=== PATIENT | male | born 1945 | race Two or more races ===

== ENCOUNTER 2022-01-22 08:30 | Inpatient (IN) | payer OTHER ==
[~2022-01-22] VITALS: Ht 180.3 cm; Wt 63.5 kg
[2022-01-22] MEDS ORDERED: IRBESARTAN-HCT1 EAC1 (12:42)
[2022-01-22] MEDS ORDERED: CALAN SR 120MG120 MG (12:42)
[2022-01-22] MEDS ORDERED: DEXILANT60 MG (12:42)
[2022-02-01] MEDS ORDERED: MONTELUKAST SOD10 MG (08:14)
[2022-02-01] MEDS ORDERED: HYDROXYZINE PAM50 MG (08:14)
== END 2022-02-06 13:10 | disposition home or self-care (01) | DRG 330 ==
LOC: SURG 01-25 08:30 → O/R 02-01 05:16 → SURG 02-01 08:30
PROVIDERS: ADMIT Colon & Rectal Surgery; ATTEND Colon & Rectal Surgery
PROC: 0DBP4ZZ Excision of Rectum, Percutaneous Endoscopic Approach (ICD-10-PCS; 2022-02-01)
PROC: 0WQF4ZZ Repair Abdominal Wall, Percutaneous Endoscopic Approach (ICD-10-PCS; 2022-02-01)
PROC: 0DNW4ZZ Release Peritoneum, Percutaneous Endoscopic Approach (ICD-10-PCS; 2022-02-01)
PROC: 0DJD8ZZ Inspection of Lower Intestinal Tract, Via Natural or Artificial Opening Endoscopic (ICD-10-PCS; 2022-02-01)
PROC: 4A1BXSH Monitoring of Gastrointestinal Vascular Perfusion using Indocyanine Green Dye, External Approach (ICD-10-PCS; 2022-02-01)
PROC: 0DTN4ZZ Resection of Sigmoid Colon, Percutaneous Endoscopic Approach (ICD-10-PCS; principal; 2022-02-01 09:45)
DX: K57.20 Diverticulitis of large intestine with perforation and abscess without bleeding (principal); K56.690 Other partial intestinal obstruction; T18.4XXA Foreign body in colon, initial encounter; R10.32 Left lower quadrant pain; K43.9 Ventral hernia without obstruction or gangrene; D12.5 Benign neoplasm of sigmoid colon; I10 Essential (primary) hypertension; Z20.822 Contact with and (suspected) exposure to COVID-19